=== PATIENT | female | born 1990 | race Hispanic/Latino ===

== ENCOUNTER 2020-02-08 16:02 | Inpatient (IN) | payer MEDICAID ==
[~2020-02-08] VITALS: Ht 152.4 cm; Wt 59.0 kg
[2020-02-08] MEDS ORDERED: LACTATED RINGERS 1000ML 1,000 ML IV PRN (22:05)
[2020-02-08] MEDS ORDERED: ROPIVACAINE 0.2% 100ML VIAL 100 ML EP SCH (22:15)
[2020-02-08] MEDS ORDERED: NALOXONE HCL 0.4 MG/1 ML ML IV PRN (22:15)
[2020-02-08] MEDS ORDERED: LACTATED RINGERS 500 ML 500 ML IV PRN (22:15)
[2020-02-08] MEDS ORDERED: MEPERIDINE-PF 50 MG/ML SYG IVP PRN (22:15)
[2020-02-08] MEDS ORDERED: EPHEDRINE SULFATE 50 MG/ML AMPULE IVP PRN (22:15)
[2020-02-08] MEDS ORDERED: PROMETHAZINE HCL 25 MG/ML 1ML AMPULE IM PRN (22:15)
[2020-02-08 22:36] LABS: APPEARANCE,URINE Clear (CLEAR); BILIRUBIN,URINE Negative (NEGATIVE); COLOR,URINE Yellow (YELLOW); GLUCOSE, URINE (UA) Negative (NEGATIVE); KETONES,URINE Negative (NEGATIVE); LEUKOCYTE ESTERASE ,URINE Trace (NEGATIVE); NITRATE,URINE Negative (NEGATIVE); OCCULT BLOOD,URINE Negative (NEGATIVE); PH,URINE 7.5 (5.0-8.0); PROTEIN,URINE Negative (NEGATIVE)
[2020-02-08 22:49] LABS: BACTERIA,URINE Few /HPF (None Seen); RBC,URINE None Seen /HPF (0-1); SQUAMOUS EPITHELIAL CELL,UR Moderate /HPF (0-2); WBC,URINE 0-1 /HPF (0-1)
[2020-02-08 23:11] LABS: HEMATOCRIT 30.9 % (36-48); MEAN CORPUSCULAR HEMOGLOBIN 25.5 pg (27.0-33.0); MEAN CORPUSCULAR HGB CONC 31.4 g/dL (32.0-36.0); MEAN CORPUSCULAR VOLUME 81.1 fL (79-99); NUCLEATED RED BLOOD CELLS 0.4 % (0.0-0.19); RED BLOOD CELL COUNT(AUTO) 3.81 MIL/uL (4.00-5.50); RED CELL DISTRIBUTION WIDTH 15.3 % (11.0-15.5); WHITE BLOOD COUNT (AUTO) 10.1 K/uL (4.8-10.8)
[2020-02-09] MEDS ORDERED: OXYTOCIN 10 USP UNITS/ML 20 UNIT in LACTATED RINGERS 1000ML 1,000 ML IV SCH (05:00)
[2020-02-09] MEDS ORDERED: OXYTOCIN-LR 20 UNITS/1000 ML 1,000 ML IV ONE (05:32)
[2020-02-09] MEDS ORDERED: MISOPROSTOL 200 MCG TABLET VG PRN (07:15)
[2020-02-09] MEDS ORDERED: LIDOCAINE HCL 1% 20 ML VIAL INJ PRN (07:15)
[2020-02-09] MEDS ORDERED: OXYTOCIN-LR 20 UNITS/1000 ML 1,000 ML IV SCH ×3 (07:15→14:45)
[2020-02-09] MEDS ORDERED: METHYLERGONOVINE MALEATE 0.2 MG/1 ML ML IM PRN (07:15)
[2020-02-09] MEDS ORDERED: LANOLIN 30GM OINTMENT TP PRN (14:45)
[2020-02-09] MEDS ORDERED: ACETAMINOPHEN 325 MG TAB PO PRN (14:45)
[2020-02-09] MEDS ORDERED: ACETAMINOPHEN-CODEINE 300/30MG TAB PO PRN (14:45)
[2020-02-09] MEDS ORDERED: BENZOCAINE/LANOLIN/ALOE VERA 60 ML AEROSOL TP PRN (14:45)
[2020-02-09] MEDS ORDERED: WITCH HAZEL 1 PAD TP PRN (14:45)
[2020-02-09] MEDS ORDERED: MEASLES/MUMPS/RUBELLA VACCINE, LIVE 0.5 ML/VIAL SQ PRN (14:45)
[2020-02-09] MEDS ORDERED: DIPH,PERTUSS(ACELL),TET VAC/PF 0.5 ML VIAL IM PRN (14:45)
[2020-02-09 16:40] VITALS: BP 110/70
[2020-02-09] MEDS ORDERED: PNV1TABL17 PO (18:22)
[2020-02-09] MEDS: IBUPROFEN 600 MG TABLET PO PRN (18:40)
[2020-02-09 20:22] VITALS: BP 109/79
[2020-02-09] MEDS: DOCUSATE SODIUM 100 MG CAP PO SCH (22:00)
[2020-02-09 23:34] VITALS: BP 110/74
[2020-02-10 04:01] VITALS: BP 109/72
[2020-02-10] MEDS: IBUPROFEN 600 MG TABLET PO PRN (04:17)
[2020-02-10 06:36] LABS: HEMATOCRIT 29.9 % (36-48); MEAN CORPUSCULAR HGB CONC 31.1 g/dL (32.0-36.0); MEAN CORPUSCULAR VOLUME 80.4 fL (79-99); PLATELET COUNT (AUTO) 190 K/uL (130-400); RED BLOOD CELL COUNT(AUTO) 3.72 MIL/uL (4.00-5.50); RED CELL DISTRIBUTION WIDTH 15.2 % (11.0-15.5); WHITE BLOOD COUNT (AUTO) 12.7 K/uL (4.8-10.8)
[2020-02-10 07:42] VITALS: BP 105/74
[2020-02-10] MEDS: DOCUSATE SODIUM 100 MG CAP PO SCH (08:57)
[2020-02-10 09:12] LABS: HEPATITIS Bs ANTIGEN SCREEN P Negative (Negative)
[2020-02-10 11:29] VITALS: BP 112/73
--- NOTE | 2020-02-10 15:15 | NUR ---
PATIENT LEFT UNIT VIA WHEELCHAIR WITH BABY IN ARMS. PERSONAL VEHICLE USED FOR TRANSPORTATION ACCOMPANIED BY SIGNIFICANT OTHER. NO BABY SECURE IN CARSEAT. NO COMPLAINTS OR CONCERNS ADDRESSED FROM PATIENT ON DISCHARGE.
== END 2020-02-10 15:15 | disposition home or self-care (01) | DRG 560 ==
LOC: LDH 21:58 → WSH 02-09 16:40
PROVIDERS: ADMIT Obstetrics & Gynecology; ATTEND Obstetrics & Gynecology
PROC: 10E0XZZ Delivery of Products of Conception, External Approach (ICD-10-PCS; principal; 2020-02-09)
PROC: 0KQM0ZZ Repair Perineum Muscle, Open Approach (ICD-10-PCS; 2020-02-09)
PROC: 3E033VJ Introduction of Other Hormone into Peripheral Vein, Percutaneous Approach (ICD-10-PCS; 2020-02-09)
PROC: 3E0R3BZ Introduction of Anesthetic Agent into Spinal Canal, Percutaneous Approach (ICD-10-PCS; 2020-02-09)
PROC: 00HU33Z Insertion of Infusion Device into Spinal Canal, Percutaneous Approach (ICD-10-PCS; 2020-02-09)
PROC: 3E0234Z Introduction of Serum, Toxoid and Vaccine into Muscle, Percutaneous Approach (ICD-10-PCS; 2020-02-09)
PROC: 3E0134Z Introduction of Serum, Toxoid and Vaccine into Subcutaneous Tissue, Percutaneous Approach (ICD-10-PCS; 2020-02-09)
PROC: 3E0P7VZ Introduction of Hormone into Female Reproductive, Via Natural or Artificial Opening (ICD-10-PCS; 2020-02-09)
DX: O70.1 Second degree perineal laceration during delivery (principal); Z20.828 Contact with and (suspected) exposure to other viral communicable diseases; Z37.0 Single live birth; Z3A.39 39 weeks gestation of pregnancy; Z23 Encounter for immunization
CPT/HCPCS: 36415; 81001; 85027; 86592; 86850; 86900; 86901; 87340; 90715; A4314; A4606; G0378; J2210; J2590; J2795; J7120; U0003